=== PATIENT | female | born 2000 | race Caucasian/White ===

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

== ENCOUNTER 2021-04-14 08:54 | Outpatient (CLI) | payer MEDICAID | END 2021-04-14 08:55 | disposition home or self-care (01) | LOC: DI.WOS 08:54 | PROVIDERS: ATTEND Orthopaedic Surgery | DX: M25.571 Pain in right ankle and joints of right foot (principal) ==

== ENCOUNTER 2021-04-14 15:06 | Outpatient (CLI) | payer MEDICAID ==
--- NOTE | 2021-04-14 15:42 | XRAY Report ---
PROCEDURE: Ankle 3 View RT INDICATIONS: ANKLE PAIN, RIGHT TECHNIQUE: 3 views of the ankle were acquired. COMPARISON: January 13, 2020 FINDINGS: BONES: No acute, displaced fracture or dislocation. The ankle mortise is maintained on these nonstre ssed views. SOFT TISSUES: No focal abnormality. IMPRESSION: 1.No acute osseous abnormality. Reviewed by: Breezy Joseph MD on 04/14/2021 3:41 PM PST Approved by: Breezy Joseph MD on 04/14/2021 3:41 PM PST Station ID: [id number]
== END 2021-04-14 15:07 | disposition home or self-care (01) ==
LOC: DI.N 15:06
PROVIDERS: ATTEND Physician Assistant
DX: M25.571 Pain in right ankle and joints of right foot (principal)

== ENCOUNTER 2021-04-19 16:03 | Outpatient (CLI) | payer MEDICAID ==
[2021-04-19 20:58] LABS: HCT - HEMATOCRIT 42.3 % (37.0-47.0); HGB - HEMOGLOBIN 13.7 g/dL (12.0-16.0); MEAN CORPUSCULAR HEMOGLOBIN 28.2 pg (27.0-31.0); MEAN CORPUSCULAR HGB CONC 32.4 g/dL (32.0-36.0); MEAN PLATELET VOLUME 9.2 fL (7.9-10.8); RED BLOOD COUNT 4.86 10^6/uL (4.20-5.40); RED CELL DISTRIBUTION WIDTH 13.1 % (12.0-15.0)
[2021-04-19 21:18] LABS: ESTIMATED AVERAGE GLUCOSE 97 mg/dL (70-100)
[2021-04-19 21:30] LABS: THYROID STIMULATING HORMONE 1.35 uIU/mL (0.34-5.60)
[2021-04-19 21:32] LABS: FREE T4 (FREE THYROXINE) 1.04 ng/dL (0.58-1.64)
[2021-04-19 23:53] LABS: CHLAMYDIA TRACHOMATIS DNA NEGATIVE (NEGATIVE); NEISSERIA GONORRHOEAE DNA NEGATIVE (NEGATIVE); TRICHOMONAS VAGINALIS DNA NEGATIVE (NEGATIVE)
[2021-04-20 12:50] LABS: CHOL/HDL RATIO 3.9 (<4.4); CHOLESTEROL 167 mg/dL; HDL CHOLESTEROL 43 mg/dL; LDL CHOLESTEROL,CALCULATED 106 mg/dL; LDL/HDL RATIO 2.5 (<4.4); TRIGLYCERIDES 88 mg/dL; VLDL CHOLESTEROL 18 mg/dL
[2021-04-21 14:02] LABS: HIV AG/AB 4TH GEN NON-REACTIVE (NON-REACTIVE)
== END 2021-04-19 16:04 | disposition home or self-care (01) ==
LOC: LAB.N 16:03
PROVIDERS: ATTEND Pediatrics
DX: Z11.3 Encounter for screening for infections with a predominantly sexual mode of transmission (principal); Z83.49 Family history of other endocrine, nutritional and metabolic diseases
CPT/HCPCS: 36415; 80061; 82306; 83036; 83721; 84439; 84443; 85027; 86592; 87389; 87491; 87591; 87661

== ENCOUNTER 2021-09-06 08:56 | Outpatient (CLI) | payer MEDICAID ==
--- NOTE | 2021-09-07 08:11 | Ultrasound Report ---
LIMITED ULTRASOUND OF LEFT BREAST: 09/06/2021 CLINICAL: History of left breast mastitis. Check for possible abcess. No prior exams were available for comparison. Ultrasound of the left breast four quadrants and retroareolar regions was performed. Saenz scale imag es of the real-time examination were reviewed. No abnormality which corresponds with the area of clinical concern is identified. IMPRESSION: NEGATIVE There is no sonographic evidence of malignancy. There is no abnormality seen in the left breast to correspond with the area of clinical concern which is consistent with normal fibroglandular tissue, however, clinical followup is recommended. This exam was interpreted at Station ID: [id number]. Electronically Signed By: Corwin Cheek acr/:09/06/2021 09:35:50 Ultrasound BI-RADS: 1 Negative BI-RADS CATEGORY: (1) - 1 Unspecified - other recall n/a LATERALITY: (B)
== END 2021-09-06 08:57 | disposition home or self-care (01) ==
LOC: DI 08:56
PROVIDERS: ATTEND Pediatrics
DX: N61.0 Mastitis without abscess (principal)